=== PATIENT | female | born 1985 | race African-American/Black ===

== ENCOUNTER 2017-01-24 23:28 | Emergency (ER) | payer SELFPAY ==
[2017-01-24] MEDS ORDERED: diPHENhydraMINE IV* 50 MG/ML 1 ml VIAL (BENADRYL) IM ONE (23:33)
[2017-01-24] MEDS ORDERED: Haloperidol INJ IV/IM* 5 MG/ML AMP IM ONE (23:33)
[2017-01-24] MEDS ORDERED: LORazepam INJ* 2 MG/ML 1 ML VIAL IV ONE (23:33)
[2017-01-25 00:43] LABS: Hematocrit 41 % (35-47); Hemoglobin 13.7 g/dl (12.0-16.0); Mean Corpuscular HGB Conc 33 g/dl (31-36); Mean Corpuscular Hemoglobin 31 pg (27-31); Mean Corpuscular Volume 93 fL (80-97); Mean Platelet Volume 9 um3 (7.4-10.4); Red Blood Count 4.43 10^6/ul (4.0-5.4); Red Cell Distribution Width 13 % (10.5-15); White Blood Count 6.9 10^3/ul (3.5-10.8)
[2017-01-25 00:48] LABS: ALT 19 U/L (7-52); AST 35 U/L (13-39); Albumin 4.1 g/dL (3.2-5.2); Alkaline Phosphatase 48 U/L (34-104); Anion Gap 8 mmol/L (2-11); BUN/Creatinine Ratio 10.8 (8-20); Blood Urea Nitrogen 11 mg/dL (6-24); CO2 Carbon Dioxide 25 mmol/L (22-32); Calcium 9.1 mg/dL (8.6-10.3); Chloride 104 mmol/L (101-111); EGFR African American 81.3 (>60); EGFR Non-African American 63.2 (>60); Globulin 2.8 g/dL (2-4); Glucose 100 mg/dL (70-100); Potassium 3.2 mmol/L (3.5-5.0); Sodium 137 mmol/L (133-145); Total Protein 6.9 g/dL (6.4-8.9)
[2017-01-25 01:19] LABS: Acetaminophen < 15 mcg/mL; Alcohol 208 mg/dL (<10); Salicylate < 2.50 mg/dL (<30)
[2017-01-25 01:30] LABS: TSH (Thyroid Stimulating Horm) 2.01 mcIU/mL (0.34-5.60)
[2017-01-25 06:21] VITALS: BP 96/60
[2017-01-25 08:48] LABS: Urine Bacteria 1+ (Absent); Urine Bilirubin Negative (Negative); Urine Glucose Negative (Negative); Urine Nitrite Negative (Negative)
[2017-01-25 08:53] LABS: Benzodiazepine Urine Screen None Detected (None Detect)
--- NOTE | 2017-01-25 17:16 | ED ---
IYoshi Billy, scribed for Dwain Presley MD on 01/25/17 at 1030 . Progress - Progress Note Progress Note: Patient signed out by Dr. Meng at shift change pending MHE. She was evaluated and assessed by Dr. Bartlett, who recommends that she be discharged home with an outpatient treatment. Course/Dx - Diagnoses Provider Diagnoses: Polysubstance abuse Discharge - Discharge Plan Condition: Stable Disposition: HOME Referrals: Non Staff,Doctor [Primary Care Provider] - The documentation as recorded by the [place] Billy accurately reflects the service I personally performed and the decisions made by Fernandez brown Walter, MD.
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
== END 2017-01-25 11:40 | disposition home or self-care (01) ==
LOC: ED 23:28
DX: F19.10 Other psychoactive substance abuse, uncomplicated (principal)
CPT/HCPCS: 36415; 80053; 80307; 80320; 80329; 81003; 81015; 84443; 85025; 87086; 96372; 96375; 99285; G0480; J1200; J1630; J2060

== ENCOUNTER → 2017-02-10 22:12 | Emergency (ER) | payer OTHER ==
[~2017-02-10 22:12] MED LIST: Valproic Acid CAP(*) 250 MG PO ONE
[2017-02-10 22:49] LABS: Hematocrit 46 % (35-47); Hemoglobin 15.2 g/dl (12.0-16.0); Mean Corpuscular HGB Conc 33 g/dl (31-36); Mean Corpuscular Hemoglobin 31 pg (27-31); Mean Corpuscular Volume 92 fL (80-97); Mean Platelet Volume 8 um3 (7.4-10.4); Red Blood Count 4.99 10^6/ul (4.0-5.4); Red Cell Distribution Width 13 % (10.5-15); White Blood Count 6.4 10^3/ul (3.5-10.8)
[2017-02-10 23:04] LABS: Urine Bacteria Absent (Absent); Urine Bilirubin Negative (Negative); Urine Glucose Negative (Negative); Urine Nitrite Negative (Negative)
[2017-02-10 23:10] LABS: Benzodiazepine Urine Screen None Detected (None Detect)
[2017-02-10 23:10] LABS: ALT 15 U/L (7-52); AST 21 U/L (13-39); Albumin 4.6 g/dL (3.2-5.2); Alkaline Phosphatase 57 U/L (34-104); Anion Gap 7 mmol/L (2-11); BUN/Creatinine Ratio 13.6 (8-20); Blood Urea Nitrogen 12 mg/dL (6-24); CO2 Carbon Dioxide 29 mmol/L (22-32); Calcium 9.5 mg/dL (8.6-10.3); Chloride 103 mmol/L (101-111); EGFR African American 96.4 (>60); EGFR Non-African American 74.9 (>60); Glucose 78 mg/dL (70-100); Potassium 3.8 mmol/L (3.5-5.0); Sodium 139 mmol/L (133-145); Total Protein 7.6 g/dL (6.4-8.9)
[2017-02-10 23:15] LABS: Acetaminophen < 15 mcg/mL; Alcohol 181 mg/dL (<10); Salicylate < 2.50 mg/dL (<30); Valproic Acid < 13.0 mcg/mL (50-100)
--- NOTE | 2017-02-10 23:21 | ED ---
Meliton Damian Benjamin, scribed for Sky Phelps MD on 02/10/17 at 2231 . Psychiatric Complaint - HPI Summary HPI Summary: 31yo female BIBA for 941. Pt states that she doesnt feel safe. Pt has hx of bipolar and Sz, and has been off her meds for 2 days. Pt is afraid that she might hurt herself. Pt is on Depakote and Risperadol. Pt also had 1 bottle of beer today. - History Of Current Complaint Chief Complaint: EDMentalHealth Time Seen by Provider: 02/10/17 22:15 Hx Obtained From: Patient ?: No Onset/Duration: Sudden Onset, Still Present Timing: Constant Severity Initially: Mild Severity Currently: Mild Character: Fearful, Anxious Aggravating Factor(s): Nothing Alleviating Factor(s): Nothing Associated Signs And Symptoms: Positive: Negative - Allergies/Home Medications Allergies/Adverse Reactions: Allergies Allergy/AdvReac Type Severity Reaction Status Date / Time Hydrocodone Allergy Hives Verified 02/10/17 22:35 PMH/Surg Hx/FS Hx/Imm Hx Psychiatric History: Reports: Hx Bipolar Disorder, Other Psychiatric Issues/ Disorders - Seizures Denies: Hx Eating Disorder - Family History Known Family History: Positive: Unknown - hx unobtainable due to hostile behavior - Social History Occupation: Unemployed Lives: Alone Alcohol Use: Daily Hx Substance Use: Yes Substance Use Type: Reports: Heroin, Marijuana Smoking Status (MU): Unknown if Ever Smoked Review of Systems Constitutional: Negative Eyes: Negative ENT: Negative Cardiovascular: Negative Respiratory: Negative Gastrointestinal: Negative Genitourinary: Negative Musculoskeletal: Negative Skin: Negative Neurological: Negative Positive: Anxious All Other Systems Reviewed And Are Negative: Yes Physical Exam Triage Information Reviewed: Yes Vital Signs On Initial Exam: Initial Vitals Temp Pulse Resp BP Pulse Ox 98.8 F 75 16 124/71 99 02/10/17 22:33 02/10/17 22:33 02/10/17 22:33 02/10/17 22:33 02/10/17 22:33 Vital Signs Reviewed: Yes Appearance: Positive: No Pain Distress, Well-Nourished. Negative: Well- Appearing - tearful, crying, anxious Skin: Positive: Warm, Skin Color Reflects Adequate Perfusion, Dry Head/Face: Positive: Normal Head/Face Inspection Eyes: Positive: Normal ENT: Positive: Normal ENT inspection Neck: Positive: Supple, Nontender Respiratory/Lung Sounds: Positive: Clear to Auscultation, Breath Sounds Present Cardiovascular: Positive: RRR. Negative: Murmur Abdomen Description: Positive: Nontender, Soft Bowel Sounds: Positive: Present Musculoskeletal: Positive: Strength/ROM Intact Neurological: Positive: Sensory/Motor Intact, Alert, Oriented to Person Place, Time, CN Intact II-III Psychiatric: Positive: Anxious - tearful, crying, anxious Diagnostics - Vital Signs Vital Signs Temp Pulse Resp BP Pulse Ox 02/10/17 22:33 98.8 F 75 16 124/71 99 - Laboratory Lab Results: Lab Results 02/10/17 02/10/17 02/10/17 Range/Units 22:40 22:40 22:45 WBC 6.4 (3.5-10.8) 10^3/ul RBC 4.99 (4.0-5.4) 10^6/ul Hgb 15.2 (12.0-16.0) g/dl Hct 46 (35-47) % MCV 92 (80-97) fL MCH 31 (27-31) pg MCHC 33 (31-36) g/dl RDW 13 (10.5-15) % Plt Count 312 (150-450) 10^3/ul MPV 8 (7.4-10.4) um3 Neut % (Auto) 37.7 L (38-83) % Lymph % (Auto) 51.6 H (25-47) % [place] % (Auto) 6.6 (1-9) % Eos % (Auto) 2.9 (0-6) % Baso % (Auto) 1.2 (0-2) % Absolute Neuts (auto) 2.4 (1.5-7.7) 10^3/ul Absolute Lymphs (auto) 3.3 (1.0-4.8) 10^3/ul Absolute Monos (auto) 0.4 (0-0.8) 10^3/ul Absolute Eos (auto) 0.2 (0-0.6) 10^3/ul Absolute Basos (auto) 0.1 (0-0.2) 10^3/ul Absolute Nucleated RBC 0.01 10^3/ul Nucleated RBC % 0.1 Sodium 139 (133-145) mmol/L Potassium 3.8 (3.5-5.0) mmol/L Chloride 103 (101-111) mmol/L Carbon Dioxide 29 (22-32) mmol/L Anion Gap 7 (2-11) mmol/L BUN 12 (6-24) mg/dL Creatinine 0.88 (0.51-0.95) mg/dL Est GFR ( Amer) 96.4 (>60) Est GFR (Non-Af Amer) 74.9 (>60) BUN/Creatinine Ratio 13.6 (8-20) Glucose 78 (70-100) mg/dL Calcium 9.5 (8.6-10.3) mg/dL Total Bilirubin 0.30 (0.2-1.0) mg/dL AST 21 (13-39) U/L ALT 15 (7-52) U/L Alkaline Phosphatase 57 (34-104) U/L Total Protein 7.6 (6.4-8.9) g/dL Albumin 4.6 (3.2-5.2) g/dL Globulin 3.0 (2-4) g/dL Albumin/Globulin Ratio 1.5 (1-3) TSH Pending Beta HCG, Quant < 0.60 mIU/mL Urine Color Yellow Urine Appearance Clear Urine pH 7.0 (5-9) Ur Specific [place] 1.020 (1.010-1.030) Urine Protein Negative (Negative) Urine Ketones Negative (Negative) Urine Blood Negative (Negative) Urine Nitrate Negative (Negative) Urine Bilirubin Negative (Negative) Urine Urobilinogen Negative (Negative) Ur Leukocyte Esterase 1+ H (Negative) Urine WBC (Auto) 2+(11-20/hpf) H (Absent) Urine RBC (Auto) 2+(6-10/hpf) H (Absent) Ur Squamous Epith Cells Present H (Absent) Urine Bacteria Absent (Absent) Urine Glucose Negative (Negative) Salicylates < 2.50 (<30) mg/dL Urine Opiates Screen (None Detect) Acetaminophen < 15 mcg/mL Ur Barbiturates Screen (None Detect) Valproic Acid < 13.0 L (50-100) mcg/mL Ur Phencyclidine Scrn (None Detect) Ur Amphetamines Screen (None Detect) U Benzodiazepines Scrn (None Detect) Urine Cocaine Screen (None Detect) U Cannabinoids Screen (None Detect) Serum Alcohol 181 H (<10) mg/dL 02/10/17 Range/Units 22:45 WBC (3.5-10.8) 10^3/ul RBC (4.0-5.4) 10^6/ul Hgb (12.0-16.0) g/dl Hct (35-47) % MCV (80-97) fL MCH (27-31) pg MCHC (31-36) g/dl RDW (10.5-15) % Plt Count (150-450) 10^3/ul MPV (7.4-10.4) um3 Neut % (Auto) (38-83) % Lymph % (Auto) (25-47) % [place] % (Auto) (1-9) % Eos % (Auto) (0-6) % Baso % (Auto) (0-2) % Absolute Neuts (auto) (1.5-7.7) 10^3/ul Absolute Lymphs (auto) (1.0-4.8) 10^3/ul Absolute Monos (auto) (0-0.8) 10^3/ul Absolute Eos (auto) (0-0.6) 10^3/ul Absolute Basos (auto) (0-0.2) 10^3/ul Absolute Nucleated RBC 10^3/ul Nucleated RBC % Sodium (133-145) mmol/L Potassium (3.5-5.0) mmol/L Chloride (101-111) mmol/L Carbon Dioxide (22-32) mmol/L Anion Gap (2-11) mmol/L BUN (6-24) mg/dL Creatinine (0.51-0.95) mg/dL Est GFR ( Amer) (>60) Est GFR (Non-Af Amer) (>60) BUN/Creatinine Ratio (8-20) Glucose (70-100) mg/dL Calcium (8.6-10.3) mg/dL Total Bilirubin (0.2-1.0) mg/dL AST (13-39) U/L ALT (7-52) U/L Alkaline Phosphatase (34-104) U/L Total Protein (6.4-8.9) g/dL Albumin (3.2-5.2) g/dL Globulin (2-4) g/dL Albumin/Globulin Ratio (1-3) TSH Beta HCG, Quant mIU/mL Urine Color Urine Appearance Urine pH (5-9) Ur Specific [place] (1.010-1.030) Urine Protein (Negative) Urine Ketones (Negative) Urine Blood (Negative) Urine Nitrate (Negative) Urine Bilirubin (Negative) Urine Urobilinogen (Negative) Ur Leukocyte Esterase (Negative) Urine WBC (Auto) (Absent) Urine RBC (Auto) (Absent) Ur Squamous Epith Cells (Absent) Urine Bacteria (Absent) Urine Glucose (Negative) Salicylates (<30) mg/dL Urine Opiates Screen None detected (None Detect) Acetaminophen mcg/mL Ur Barbiturates Screen None detected (None Detect) Valproic Acid (50-100) mcg/mL Ur Phencyclidine Scrn None detected (None Detect) Ur Amphetamines Screen None detected (None Detect) U Benzodiazepines Scrn None detected (None Detect) Urine Cocaine Screen Presumptive positive H (None Detect) U Cannabinoids Screen Presumptive positive H (None Detect) Serum Alcohol (<10) mg/dL Result Diagrams: 02/10/17 22:40 02/10/17 22:40 Lab Statement: Any lab studies that have been ordered have been reviewed, and results considered in the medical decision making process. Course/Dx - Course Course Of Treatment: NO CRITICAL CARE TIME. MHE PENDING AT SHIFT CHANGE. - Differential Dx/Clinical Impression Provider Diagnosis: Mental health problem, Acute alcohol intoxication Discharge - Discharge Plan Condition: Stable Disposition: OTHER Discharge Disposition Comment: . Referrals: Non Staff,Doctor [Primary Care Provider] - The documentation as recorded by the [place] Benjamin accurately reflects the service I personally performed and the decisions made by me, Sky Phelps MD.
[2017-02-10 23:24] LABS: TSH (Thyroid Stimulating Horm) 2.98 mcIU/mL (0.34-5.60)
[2017-02-11 03:15] VITALS: BP 100/59
--- NOTE | 2017-02-11 06:33 | ED ---
Eliel Damian Salem, scribed for Martín Gutierres on 02/11/17 at 0625 . Progress - Progress Note Progress Note: Pt was signed out from Dr. Phelps. She is medically cleared and waiting mental health evaluation. - Consult/PCP Time Called: 03:00 Course/Dx - Course Course Of Treatment: NO CRITICAL CARE TIME. MHE PENDING AT SHIFT CHANGE. mhe done and will be dc home. - Diagnoses Provider Diagnoses: Mental health problem, Acute alcohol intoxication, Depressed affect Discharge - Discharge Plan Condition: Stable Disposition: OTHER Discharge Disposition Comment: dc home The documentation as recorded by the [place] accurately reflects the service I personally performed and the decisions made by Nenita brown Emmanuel.
== END ==
LOC: EEVIPCON 22:12 → ED 22:12
DX: F10.129 Alcohol abuse with intoxication, unspecified (principal); Z00.8 Encounter for other general examination; F32.9 Major depressive disorder, single episode, unspecified
CPT/HCPCS: 36415; 80053; 80164; 80307; 80320; 80329; 81003; 81015; 84443; 84702; 85025; 87086; 99284; A9270-GY; G0480

== ENCOUNTER → 2017-05-12 00:56 | Emergency (ER) | payer OTHER ==
[~2017-05-12 00:56] MED LIST changes: +Divalproex ER TAB(*) 500 MG ONE; +Divalproex ER TAB(*) 500 MG PO SCH; +Haloperidol INJ IV/IM* 5 MG/ML AMP IM ONE; +LORazepam INJ* 2 MG/ML 1 ML VIAL IM ONE; -Valproic Acid CAP(*) 250 MG PO ONE; +diPHENhydraMINE IV* 50 MG/ML 1 ml VIAL (BENADRYL) IM ONE; +diPHENhydraMINE PO* 50 MG ONE
[2017-05-12 01:55] LABS: Hematocrit 39 % (35-47); Hemoglobin 13.1 g/dl (12.0-16.0); Mean Corpuscular HGB Conc 33 g/dl (31-36); Mean Corpuscular Hemoglobin 31 pg (27-31); Mean Corpuscular Volume 94 fL (80-97); Mean Platelet Volume 8 um3 (7.4-10.4); Red Blood Count 4.21 10^6/ul (4.0-5.4); Red Cell Distribution Width 13 % (10.5-15); White Blood Count 7.2 10^3/ul (3.5-10.8)
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
[2017-05-12 02:10] LABS: ALT 18 U/L (7-52); Acetaminophen < 15 mcg/mL; Albumin 4.3 g/dL (3.2-5.2); Alcohol 256 mg/dL (<10); Alkaline Phosphatase 46 U/L (34-104); BUN/Creatinine Ratio 13.9 (8-20); Blood Urea Nitrogen 16 mg/dL (6-24); CO2 Carbon Dioxide 28 mmol/L (22-32); Chloride 102 mmol/L (101-111); EGFR African American 70.3 (>60); EGFR Non-African American 54.7 (>60); Glucose 117 mg/dL (70-100); Salicylate < 2.50 mg/dL (<30); Sodium 137 mmol/L (133-145); Total Protein 7.3 g/dL (6.4-8.9)
[2017-05-12 02:20] LABS: TSH (Thyroid Stimulating Horm) 3.14 mcIU/mL (0.34-5.60)
[2017-05-12 02:42] LABS: Anion Gap 7 mmol/L (2-11); Potassium 3.6 mmol/L (3.5-5.0)
[2017-05-12 02:43] LABS: AST 29 U/L (13-39)
[2017-05-12 03:55] LABS: Valproic Acid < 13.0 mcg/mL (50-100)
[2017-05-12 11:06] LABS: Benzodiazepine Urine Screen None Detected (None Detect)
[2017-05-12 12:02] LABS: Urine Bacteria Absent (Absent); Urine Bilirubin Negative (Negative); Urine Glucose Negative (Negative); Urine Nitrite Negative (Negative)
[2017-05-12 12:32] VITALS: BP 117/74
== END ==
LOC: ED 00:56
DX: F10.129 Alcohol abuse with intoxication, unspecified (principal)
CPT/HCPCS: 36415; 80053; 80164; 80307; 80320; 80329; 81003; 81015; 84443; 85025; 87086; 96372; 99285; A9270-GY; G0480; J1200; J1630; J2060

== ENCOUNTER 2017-05-24 04:52 | Emergency (ER) | payer OTHER ==
[2017-05-24] MEDS ORDERED: diPHENhydraMINE IV* 50 MG/ML 1 ml VIAL (BENADRYL) IM ONE (05:13)
[2017-05-24] MEDS ORDERED: LORazepam INJ* 2 MG/ML 1 ML VIAL IV PUSH ONE (05:13)
[2017-05-24] MEDS ORDERED: Haloperidol INJ IV/IM* 5 MG/ML AMP IM ONE (05:13)
[2017-05-24 05:45] VITALS: BP 93/62
[2017-05-24 06:07] LABS: Add Diff/Slide Review? Slide Review Added; Comments Flag Yes; Hematocrit 38 % (35-47); Mean Corpuscular HGB Conc 34 g/dl (31-36); Mean Corpuscular Hemoglobin 32 pg (27-31); Mean Corpuscular Volume 93 fL (80-97); Mean Platelet Volume 8 um3 (7.4-10.4); Red Blood Count 4.09 10^6/ul (4.0-5.4); Red Cell Distribution Width 13 % (10.5-15); White Blood Count 7.1 10^3/ul (3.5-10.8)
[2017-05-24 06:18] LABS: ALT 29 U/L (7-52); Acetaminophen < 15 mcg/mL; Albumin 4.5 g/dL (3.2-5.2); Alcohol 202 mg/dL (<10); Alkaline Phosphatase 51 U/L (34-104); BUN/Creatinine Ratio 16.2 (8-20); Blood Urea Nitrogen 16 mg/dL (6-24); CO2 Carbon Dioxide 24 mmol/L (22-32); Calcium 9.4 mg/dL (8.6-10.3); Chloride 104 mmol/L (101-111); EGFR African American 83.6 (>60); Globulin 2.7 g/dL (2-4); Glucose 124 mg/dL (70-100); Salicylate < 2.50 mg/dL (<30); Sodium 136 mmol/L (133-145); Total Protein 7.2 g/dL (6.4-8.9)
[2017-05-24 06:21] LABS: Anion Gap 8 mmol/L (2-11)
[2017-05-24 06:29] LABS: TSH (Thyroid Stimulating Horm) 2.38 mcIU/mL (0.34-5.60)
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
--- NOTE | 2017-05-25 04:33 | ED ---
Lali Damian Rebecca, scribed for Edward Meng MD on 05/24/17 at 0554 . Psychiatric Complaint - HPI Summary HPI Summary: Pt is a 32 y/o F BIB [employer] who presents to ED combative with a spit mask on. Police report the pt had been combative and kicking in their vehicle while [place] [facility] [place] Combativeness necessitated pepper spray while en route. She continues to be angry and curse at individuals in [facility] [place]. PMHx bipolar disorder - states she has not taken her medication in 2 days. Level 5 caveat due to combativeness. - History Of Current Complaint Chief Complaint: EDMentalHealth Hx Obtained From: Other: - Police Hx From Patient Unobtainable Due To: Other - Combativeness Onset/Duration: Still Present Character: Angry - Combative Related History: Positive For: Prior Psychiatric Issues - Bipolar - Allergies/Home Medications Allergies/Adverse Reactions: Allergies Allergy/AdvReac Type Severity Reaction Status Date / Time Hydrocodone Allergy Hives Verified 02/10/17 22:35 PMH/Surg Hx/FS Hx/Imm Hx Respiratory History: Reports: Hx Asthma Neurological History: Reports: Hx Seizures Psychiatric History: Reports: Hx Bipolar Disorder, Other Psychiatric Issues/ Disorders - Seizures Denies: Hx Eating Disorder Infectious Disease History: No Infectious Disease History: Denies: Traveled Outside the [place] in Last 30 Days - Family History Known Family History: Positive: Unknown - Level 5 caveat due to uncooperativity/ combativeness - Social History Alcohol Use: Daily Hx Substance Use: Yes Substance Use Type: Reports: Heroin, Marijuana Substance Use Comment - Amount & Last Used: no drug use Smoking Status (MU): Unknown if Ever Smoked Review of Systems - ROS Summary Review of Systems Summary: Level 5 caveat due to combativeness Positive: Other - Combativeness All Other Systems Reviewed And Are Negative: No Physical Exam - Summary Physical Exam Summary: General: She is crying out, disorganized and paranoid. Eyes: She has injected conjunctiva from pepper spray. Cardiovascular: Skin is well perfused Pulmonary: No respiratory distress, no tachypnea Abdomen: Non-distended Skin: Warm, pink, dry Psych: Anxious affect and paranoid. Neuro: A&Ox3 Triage Information Reviewed: Yes Vital Signs On Initial Exam: Initial Vitals Temp Pulse Resp BP Pulse Ox 96.7 F 89 14 93/62 98 05/24/17 05:15 05/24/17 05:15 05/24/17 05:15 05/24/17 05:15 05/24/17 05:15 Vital Signs Reviewed: Yes Completion Of Physical Exam Limited Due To: Other - Combativeness Diagnostics - Vital Signs Vital Signs Temp Pulse Resp BP Pulse Ox 05/24/17 05:15 96.7 F 89 14 93/62 98 - Laboratory Result Diagrams: 05/24/17 05:25 05/24/17 06:36 Lab Statement: Any lab studies that have been ordered have been reviewed, and results considered in the medical decision making process. Course/Dx - Course Assessment/Plan: Pt is a 32 y/o F BIB [employer] who presents to ED combative with a spit mask on. Police report the pt had been combative and kicking in their vehicle while en route [place] [facility] Combativeness necessitated pepper spray while en route. She continues to be angry and curse at individuals in [facility] [place]. PMHx bipolar disorder - states she has not taken her medication in 2 days. Level 5 caveat due to combativeness. In the ED course, pt was given Haldol, Ativan and Benadryl. She will be signed out, pending dispo, awaiting MHE. - Differential Dx/Clinical Impression Provider Diagnosis: Polysubstance abuse, Psychoses Discharge - Discharge Plan Condition: Stable Disposition: OTHER Discharge Disposition Comment: Pt will be signed out, pending dispo, awaiting MHE. Referrals: Non Staff,Doctor [Primary Care Provider] - The documentation as recorded by the [place]ali hill Rebecca accurately reflects the service I personally performed and the decisions made by me, Edward Meng MD.
== END 2017-05-24 14:31 ==
LOC: ED 04:52
DX: F19.10 Other psychoactive substance abuse, uncomplicated (principal); F29 Unspecified psychosis not due to a substance or known physiological condition; F31.9 Bipolar disorder, unspecified; Z88.5 Allergy status to narcotic agent
CPT/HCPCS: 36415; 80053; 80320; 80329; 84443; 85025; 96372; 96374; 99284; G0480; J1200; J1630; J2060

== ENCOUNTER 2017-08-26 23:55 | Emergency (ER) | payer OTHER ==
[2017-08-27] MEDS ORDERED: ALPRAZolam TAB* 0.5 MG PO ONE (00:22)
[2017-08-27 00:34] LABS: Urine Appearance Clear; Urine Blood Negative (Negative); Urine Color Colorless; Urine Ketones Negative (Negative); Urine Protein Negative (Negative); Urine Specific Gravity 1.002 (1.010-1.030); Urine Urobilinogen Negative (Negative)
[2017-08-27 00:58] LABS: ABS Basophils 0.1 10^3/ul (0-0.2); ABS Eosinophils 0.5 10^3/ul (0-0.6); ABS Lymphocytes 2.9 10^3/ul (1.0-4.8); ABS Monocytes 0.4 10^3/ul (0-0.8); ABS Neutrophils 2.4 10^3/ul (1.5-7.7); ABS Nucleated RBC 0 10^3/ul; Eosinophil % 8.3 % (0-6); Hematocrit 45 % (35-47); Hemoglobin 15.5 g/dl (12.0-16.0); Lymphocyte % 45.9 % (25-47); Mean Corpuscular HGB Conc 34 g/dl (31-36); Mean Corpuscular Hemoglobin 32 pg (27-31); Mean Corpuscular Volume 94 fL (80-97); Mean Platelet Volume 9 um3 (7.4-10.4); Nucleated Red Blood Cells % 0.1; Platelet Count 244 10^3/ul (150-450); Red Blood Count 4.81 10^6/ul (4.0-5.4); Red Cell Distribution Width 13 % (10.5-15); White Blood Count 6.2 10^3/ul (3.5-10.8)
[2017-08-27 01:13] LABS: EGFR Non-African American 86.9 (>60)
[2017-08-27 06:45] VITALS: BP 114/65
--- NOTE | 2017-08-29 00:15 | ED ---
Dee Damian Gabriel, scribed for Bridget Mathias MD on 08/27/17 at 1102 . Progress - Progress Note Progress Note: This patient was signed out from Dr. Gandhi, pending disposition, awaiting MHE. After MHE, Dr. Rae has The patients condition is stable and will be discharged to home with Dx of depression and suicidal ideation . 10:55 Patient states she feels good enough to go home, she isnt feeling suicidal, and she has no questions for the doctor. - Consult/PCP Time Called: 23:55 Course/Dx - Course Course Of Treatment: per Dr. Rae pt can be discharged. - Diagnoses Provider Diagnoses: Suicidal ideation The documentation as recorded by the [place] Gabriel accurately reflects the service I personally performed and the decisions made by , Bridget Mathias MD.
--- NOTE | 2017-09-09 08:46 | ED ---
Brooklynn Damian Emily, scribed for Flory Gnadhi MD on 08/27/17 at 0024 . Psychiatric Complaint - HPI Summary HPI Summary: This patient is a 32 year old F BIBA to [facility] with a chief complaint of SI that occurred earlier today. Patient reports not feeling right. The patient rates the pain 0/10 in severity. Symptoms aggravated by nothing. Symptoms alleviated by nothing. Patient denies CP, vaginal bleeding, vomiting diarrhea, abd pain, SOB, hallucinations, urinary symptoms, headache, blurred vision, and skin complaints. Pt has been diagnosed as bipolar and borderline schizophrenic. Pt reports not having taken her medications in the past two days. - History Of Current Complaint Chief Complaint: EDMentalHealth Time Seen by Provider: 08/26/17 23:59 Hx Obtained From: Patient Onset/Duration: Sudden Onset, Lasting Hours, Still Present Severity Initially: Mild Severity Currently: Mild Aggravating Factor(s): Nothing Alleviating Factor(s): Nothing Related History: Positive For: Prior Psychiatric Issues Has Suicidal: Reports: Thoughts - Allergies/Home Medications Allergies/Adverse Reactions: Allergies Allergy/AdvReac Type Severity Reaction Status Date / Time Hydrocodone Allergy Hives Verified 02/10/17 22:35 PMH/Surg Hx/FS Hx/Imm Hx Previously Healthy: No Respiratory History: Reports: Hx Asthma Neurological History: Reports: Hx Seizures Psychiatric History: Reports: Hx Bipolar Disorder, Hx of Violent Episodes Against Others, Other Psychiatric Issues/Disorders - Seizures Denies: Hx Eating Disorder Infectious Disease History: No Infectious Disease History: Denies: Traveled Outside the [place] in Last 30 Days - Family History Known Family History: Positive: Unknown - Level 5 caveat due to uncooperativity/ combativeness - Social History Lives: Alone Alcohol Use: Daily Hx Substance Use: Yes Substance Use Type: Reports: Heroin, Marijuana Substance Use Comment - Amount & Last Used: no drug use Smoking Status (MU): Unknown if Ever Smoked Review of Systems Negative: Fever Negative: Blurred Vision Negative: Chest Pain Negative: Shortness Of Breath Negative: Abdominal Pain, Vomiting, Diarrhea Positive: no symptoms reported Skin: Negative Negative: Headache Positive: Other - Positive SI. Negative hallucinations All Other Systems Reviewed And Are Negative: No Physical Exam - Summary Physical Exam Summary: Appearance: Alert, conversive, nontoxic appearing Skin: Warm, dry, no mottling, no rashes, no contusions HEENT: EOMI, PERRL, moist mucous membranes Neck: No masses on the neck, supple Respiratory: Clear to auscultation, breath sounds present, no rales, no rhonchi , no wheezes Cardiovascular: RRR, pulses are symmetrical in both lower and upper extremities Abdomen: Soft, non-tender Bowel Sounds: Present Musculoskeletal: No CVA tenderness, no obvious deformity, moving all extremities in a grossly normal manner Neurological: A&Ox3, CN II-XII Intact, moving all extremities symmetrically Psychiatric: Normal affect and mood Triage Information Reviewed: Yes Vital Signs On Initial Exam: Initial Vitals Temp Pulse Resp BP Pulse Ox 98.5 F 89 16 133/93 99 08/27/17 00:00 08/27/17 00:00 08/27/17 00:00 08/27/17 00:00 08/27/17 00:00 Vital Signs Reviewed: Yes Diagnostics - Vital Signs Vital Signs Temp Pulse Resp BP Pulse Ox 08/27/17 00:00 98.5 F 89 16 133/93 99 - Laboratory Lab Results: Lab Results 08/27/17 08/27/17 08/27/17 Range/Units 00:10 00:10 00:30 WBC (3.5-10.8) 10^3/ul RBC (4.0-5.4) 10^6/ul Hgb (12.0-16.0) g/dl Hct (35-47) % MCV (80-97) fL MCH (27-31) pg MCHC (31-36) g/dl RDW (10.5-15) % Plt Count (150-450) 10^3/ul MPV (7.4-10.4) um3 Neut % (Auto) (38-83) % Lymph % (Auto) (25-47) % Rock % (Auto) (1-9) % Eos % (Auto) (0-6) % Baso % (Auto) (0-2) % Absolute Neuts (auto) (1.5-7.7) 10^3/ul Absolute Lymphs (auto) (1.0-4.8) 10^3/ul Absolute Monos (auto) (0-0.8) 10^3/ul Absolute Eos (auto) (0-0.6) 10^3/ul Absolute Basos (auto) (0-0.2) 10^3/ul Absolute Nucleated RBC 10^3/ul Nucleated RBC % Sodium 140 (133-145) mmol/L Potassium 3.8 (3.5-5.0) mmol/L Chloride 105 (101-111) mmol/L Carbon Dioxide 23 (22-32) mmol/L Anion Gap 12 H (2-11) mmol/L BUN 12 (6-24) mg/dL Creatinine 0.77 (0.51-0.95) mg/dL Est GFR ( Amer) 111.7 (>60) Est GFR (Non-Af Amer) 86.9 (>60) BUN/Creatinine Ratio 15.6 (8-20) Glucose 90 (70-100) mg/dL Calcium 9.1 (8.6-10.3) mg/dL Total Bilirubin 0.40 (0.2-1.0) mg/dL AST 22 (13-39) U/L ALT 17 (7-52) U/L Alkaline Phosphatase 58 (34-104) U/L Total Protein 7.8 (6.4-8.9) g/dL Albumin 4.6 (3.2-5.2) g/dL Globulin 3.2 (2-4) g/dL Albumin/Globulin Ratio 1.4 (1-3) Beta HCG, Quant < 0.60 mIU/mL Urine Color Colorless Urine Appearance Clear Urine pH 7.0 (5-9) Ur Specific [place] 1.002 L (1.010-1.030) Urine Protein Negative (Negative) Urine Ketones Negative (Negative) Urine Blood Negative (Negative) Urine Nitrate Negative (Negative) Urine Bilirubin Negative (Negative) Urine Urobilinogen Negative (Negative) Ur Leukocyte Esterase Trace H (Negative) Urine WBC (Auto) Trace(0-5/hpf) (Absent) Urine RBC (Auto) Absent (Absent) Ur Squamous Epith Cells Present H (Absent) Urine Bacteria Absent (Absent) Urine Glucose Negative (Negative) Salicylates < 2.50 (<30) mg/dL Urine Opiates Screen None detected (None Detect) Acetaminophen < 15 mcg/mL Ur Barbiturates Screen None detected (None Detect) Valproic Acid < 13.0 L (50-100) mcg/mL Ur Phencyclidine Scrn None detected (None Detect) Ur Amphetamines Screen None detected (None Detect) U Benzodiazepines Scrn None detected (None Detect) Urine Cocaine Screen Presumptive positive H (None Detect) U Cannabinoids Screen Presumptive positive H (None Detect) Serum Alcohol 208 H (<10) mg/dL 08/27/17 Range/Units 00:30 WBC 6.2 (3.5-10.8) 10^3/ul RBC 4.81 (4.0-5.4) 10^6/ul Hgb 15.5 (12.0-16.0) g/dl Hct 45 (35-47) % MCV 94 (80-97) fL MCH 32 H (27-31) pg MCHC 34 (31-36) g/dl RDW 13 (10.5-15) % Plt Count 244 (150-450) 10^3/ul MPV 9 (7.4-10.4) um3 Neut % (Auto) 38.5 (38-83) % Lymph % (Auto) 45.9 (25-47) % Rock % (Auto) 6.0 (1-9) % Eos % (Auto) 8.3 H (0-6) % Baso % (Auto) 1.3 (0-2) % Absolute Neuts (auto) 2.4 (1.5-7.7) 10^3/ul Absolute Lymphs (auto) 2.9 (1.0-4.8) 10^3/ul Absolute Monos (auto) 0.4 (0-0.8) 10^3/ul Absolute Eos (auto) 0.5 (0-0.6) 10^3/ul Absolute Basos (auto) 0.1 (0-0.2) 10^3/ul Absolute Nucleated RBC 0 10^3/ul Nucleated RBC % 0.1 Sodium (133-145) mmol/L Potassium (3.5-5.0) mmol/L Chloride (101-111) mmol/L Carbon Dioxide (22-32) mmol/L Anion Gap (2-11) mmol/L BUN (6-24) mg/dL Creatinine (0.51-0.95) mg/dL Est GFR ( Amer) (>60) Est GFR (Non-Af Amer) (>60) BUN/Creatinine Ratio (8-20) Glucose (70-100) mg/dL Calcium (8.6-10.3) mg/dL Total Bilirubin (0.2-1.0) mg/dL AST (13-39) U/L ALT (7-52) U/L Alkaline Phosphatase (34-104) U/L Total Protein (6.4-8.9) g/dL Albumin (3.2-5.2) g/dL Globulin (2-4) g/dL Albumin/Globulin Ratio (1-3) Beta HCG, Quant mIU/mL Urine Color Urine Appearance Urine pH (5-9) Ur Specific [place] (1.010-1.030) Urine Protein (Negative) Urine Ketones (Negative) Urine Blood (Negative) Urine Nitrate (Negative) Urine Bilirubin (Negative) Urine Urobilinogen (Negative) Ur Leukocyte Esterase (Negative) Urine WBC (Auto) (Absent) Urine RBC (Auto) (Absent) Ur Squamous Epith Cells (Absent) Urine Bacteria (Absent) Urine Glucose (Negative) Salicylates (<30) mg/dL Urine Opiates Screen (None Detect) Acetaminophen mcg/mL Ur Barbiturates Screen (None Detect) Valproic Acid (50-100) mcg/mL Ur Phencyclidine Scrn (None Detect) Ur Amphetamines Screen (None Detect) U Benzodiazepines Scrn (None Detect) Urine Cocaine Screen (None Detect) U Cannabinoids Screen (None Detect) Serum Alcohol (<10) mg/dL Result Diagrams: 08/27/17 00:30 08/27/17 00:30 Lab Statement: Any lab studies that have been ordered have been reviewed, and results considered in the medical decision making process. Course/Dx - Course Assessment/Plan: This patient is a 32 year old F BIBA to [facility] with a chief complaint of SI that occurred earlier today. Pt has been previously diagnosed as bipolar and borderline schizophrenic. Pt reports not having taken her medications in the past two days. Test results with no significant abnormalities except for urine cocaine screen, urine cannaboids, and serum alcohol. In the ED course the patient was given Xanax. Pt was medically cleared for MHE at 0030. Pt is signed off to Dr. Mathias upon shift change, pending disposition, awaiting MHE. - Differential Dx/Clinical Impression Provider Diagnosis: Suicidal ideation Discharge - Discharge Plan Condition: Stable Disposition: HOME Patient Education Materials: Generalized Anxiety Disorder (ED) Referrals: Non Staff,Doctor [Primary Care Provider] - The documentation as recorded by the Brooklynn hill Emily accurately reflects the service I personally performed and the decisions made by me, Flory Gandhi MD.
== END 2017-08-27 11:29 | disposition home or self-care (01) ==
LOC: ED 23:55
DX: R45.851 Suicidal ideations (principal)
CPT/HCPCS: 36415; 80053; 80164; 80307; 80320; 80329; 81003; 81015; 84702; 85025; 87086; 99284; A9270-GY; G0480

== ENCOUNTER 2021-02-22 01:47 | Inpatient (IN) ==
[2021-02-22] MEDS ORDERED: NS 0.9% 1000 ml BAG 1,000 ML IV ONE ×3 (01:59→07:22)
[2021-02-22 05:38] LABS: ALT 93 U/L (7-52); AST 186 U/L (13-39); Albumin 5.5 g/dL (3.2-5.2); Albumin/Globulin Ratio 1.7 (1-3); Alkaline Phosphatase 100 U/L (35-149); Blood Urea Nitrogen 10 mg/dL (6-24); Chloride 89 mmol/L (101-111); EGFR African American 104.8 (>60); EGFR Non-African American 86.6 (>60); Globulin 3.3 g/dL (2-4); Glucose 142 mg/dL (70-100); HCG Pregnancy < 0.60 mIU/mL; Magnesium 1.6 mg/dL (1.9-2.7); Potassium 5.1 mmol/L (3.5-5.0); Sodium 128 mmol/L (135-145); Total Protein 8.8 g/dL (6.4-8.9)
[2021-02-22 05:39] LABS: Anion Gap 25 mmol/L (2-11)
[2021-02-22 05:40] LABS: CO2 Carbon Dioxide 14 mmol/L (22-32)
[2021-02-22 05:41] LABS: Alcohol, S 104 mg/dL (<10)
[2021-02-22 05:47] LABS: ABS Lymphocytes 0.8 10^3/ul (1.0-4.8); ABS Monocytes 0.3 10^3/ul (0-0.8); ABS Neutrophils 3.3 10^3/ul (1.5-7.7); Eosinophil % 0.1 %; Hematocrit 41 % (35-47); Hemoglobin 13.8 g/dL (12.0-16.0); Lymphocyte % 18.8 %; Mean Corpuscular HGB Conc 34 g/dL (31-36); Mean Corpuscular Hemoglobin 35 pg (27-31); Mean Corpuscular Volume 102 fL (80-97); Mean Platelet Volume 7.9 fL (7.4-10.4); Nucleated Red Blood Cells % 0.3; Platelet Count 145 10^3/uL (150-450); Red Blood Count 3.99 10^6 /uL (3.70-4.87); Red Cell Distribution Width 15 % (10-15); White Blood Count 4.4 10^3/uL (3.5-10.8)
[2021-02-22] MEDS ORDERED: Magnesium Sulfate 2 gm BAG 2 GM/50 ML BAG IVPB ONE (05:47)
[2021-02-22 06:27] LABS: Phosphorus 2.2 mg/dL (2.5-5.0)
[2021-02-22 06:29] LABS: Lipase 792 U/L (11.0-82.0)
[2021-02-22 06:45] LABS: Urine Appearance Cloudy; Urine Bilirubin Negative (Negative); Urine Blood 3+ (Negative); Urine Color Yellow; Urine Glucose 1+(50 mg/dL) (Negative); Urine Ketones 2+ (Negative); Urine Nitrite Negative (Negative); Urine Protein 3+(>=500 mg/dL) (Negative); Urine Specific Gravity 1.025 (1.002-1.030); Urine Urobilinogen Negative (Negative)
[2021-02-22 06:52] LABS: Urine Bacteria Absent (Absent); Urine Red Blood Cell 3+(>10/hpf) (Absent); Urine Squamous Epithelial Cell Present (Absent); Urine White Blood Cell Trace(0-5/hpf) (Absent)
[2021-02-22] MEDS ORDERED: Piperacillin/Tazobac ADVAN 3.375 GM in NS 0.9% 100 ml BAG 100 ML IV ONE (07:32)
[2021-02-22] MEDS ORDERED: Lactated Ringers 1000 ml BAG 1,000 ML IV ONE (07:33)
[2021-02-22] MEDS ORDERED: Iohexol 300 (CONTRAST) 10 ML SDV IV ONE (09:29)
[2021-02-22] MEDS ORDERED: fentaNYL 100 mcg/2 ml 50 MCG/ML VIAL IV SLOW PU ONE (09:37)
[2021-02-22] MEDS ORDERED: Diazepam INJ CARPUJECT 5 MG/ML IV ONE (09:37)
[2021-02-22] MEDS ORDERED: Ondansetron 4 mg VIAL 2 MG/ML 2 ml VIAL IV PRN (14:18)
[2021-02-22] MEDS ORDERED: Lactated Ringers 1000 ml BAG 1,000 ML IV SCH (15:00)
[2021-02-22 15:08] LABS: Calcium 7.4 mg/dL (8.6-10.3); Chloride 95 mmol/L (101-111); Sodium 124 mmol/L (135-145)
[2021-02-22 15:12] LABS: CO2 Carbon Dioxide 9 mmol/L (22-32)
[2021-02-22 15:14] LABS: Blood Urea Nitrogen 6 mg/dL (6-24); EGFR African American 121.2 (>60); EGFR Non-African American 100.2 (>60); Glucose 142 mg/dL (70-100)
[2021-02-22] MEDS ORDERED: Lorazepam PYXIS KEY PRN (15:18)
[2021-02-22 15:23] LABS: Anion Gap 20 mmol/L (2-11)
[2021-02-22] MEDS ORDERED: NS 0.9% 500 ml BAG 500 ML IV ONE (15:26)
[2021-02-22] MEDS ORDERED: Sodium Bicarbonate 8.4% SYR 50 ml SYRINGE IV ONE (15:29)
[2021-02-22] MEDS ORDERED: NS 0.9% 500 ml BAG 500 ML IV SCH (16:00)
[2021-02-22] MEDS ORDERED: Lactated Ringers 500 ml BAG 500 ML IV SCH (16:00)
[2021-02-22] MEDS ORDERED: Thiamine 100 MG/ML 2 ml VIAL (200 mg) IV ONE (16:46)
[2021-02-22 17:45] LABS: Hepatitis B Surface Antigen Nonreactive (Nonreactive)
[2021-02-22] MEDS: HYDROmorphone 0.5 MG/0.5 ML SYRINGE IV PRN ×2 (17:45→21:25)
[2021-02-22 17:50] LABS: Hepatitis A Ab IgM Negative (Negative); Hepatitis B Core IgM Nonreactive (Nonreactive)
[2021-02-22] MEDS ORDERED: Thiamine IV 100 MG in NS 0.9% 50 ML IV ONE (18:00)
[2021-02-22 18:02] LABS: Hepatitis C Antibody Negative (Negative)
[2021-02-22] MEDS: Lactated Ringers 1000 ml BAG 1,000 ML IV SCH (20:26)
[2021-02-22 22:04] LABS: Calcium 8.3 mg/dL (8.6-10.3); EGFR African American 130.1 (>60); EGFR Non-African American 107.5 (>60); Potassium 4.5 mmol/L (3.5-5.0)
[2021-02-23] MEDS: Lactated Ringers 1000 ml BAG 1,000 ML IV SCH (00:17)
[2021-02-23] MEDS: HYDROmorphone 0.5 MG/0.5 ML SYRINGE IV PRN ×7 (00:38→22:22)
[2021-02-23 05:51] LABS: ABS Eosinophils 0.1 10^3/ul (0-0.6); ABS Lymphocytes 0.9 10^3/ul (1.0-4.8); ABS Monocytes 0.2 10^3/ul (0-0.8); ABS Neutrophils 1.8 10^3/ul (1.5-7.7); Eosinophil % 1.8 %; Hematocrit 28 % (35-47); Hemoglobin 9.8 g/dL (12.0-16.0); Lymphocyte % 30.4 %; Mean Corpuscular HGB Conc 35 g/dL (31-36); Mean Corpuscular Hemoglobin 35 pg (27-31); Mean Corpuscular Volume 99 fL (80-97); Nucleated Red Blood Cells % 0.1; Red Blood Count 2.82 10^6 /uL (3.70-4.87); Red Cell Distribution Width 14 % (10-15); White Blood Count 2.9 10^3/uL (3.5-10.8)
[2021-02-23 06:13] LABS: ALT 49 U/L (7-52); AST 90 U/L (13-39); Albumin 3.9 g/dL (3.2-5.2); Albumin/Globulin Ratio 1.8 (1-3); Alkaline Phosphatase 63 U/L (35-149); Anion Gap 13 mmol/L (2-11); Blood Urea Nitrogen 5 mg/dL (6-24); CO2 Carbon Dioxide 21 mmol/L (22-32); Calcium 8.3 mg/dL (8.6-10.3); Chloride 95 mmol/L (101-111); EGFR African American 166.1 (>60); EGFR Non-African American 137.2 (>60); Globulin 2.2 g/dL (2-4); Glucose 95 mg/dL (70-100); Magnesium 1.6 mg/dL (1.9-2.7); Potassium 3.9 mmol/L (3.5-5.0); Sodium 129 mmol/L (135-145); Total Protein 6.1 g/dL (6.4-8.9)
[2021-02-23 06:14] LABS: Platelet Count 78 10^3/uL (150-450)
[2021-02-23 06:20] LABS: Phosphorus < 1.0 mg/dL (2.5-5.0)
[2021-02-23] MEDS ORDERED: Magnesium Sulf 4 GM/100 ML IV 4,000 MG/100 ML BAG IVPB ONE (06:30)
[2021-02-23] MEDS ORDERED: Sodium Phosphate IV 30 MMOLE in NS 0.9% 250 ml 250 ML IVPB ONE (06:56)
[2021-02-23] MEDS ORDERED: Potassium Phosphate IV 15 MMOLE in NS 0.9% 250 ml 250 ML IVPB ONE (14:08)
[2021-02-23 14:34] LABS: Calcium 7.9 mg/dL (8.6-10.3); EGFR African American 169.9 (>60); EGFR Non-African American 140.4 (>60); Phosphorus 2.7 mg/dL (2.5-5.0); Potassium 3.6 mmol/L (3.5-5.0)
[2021-02-23] MEDS: Potassium & Sodium Phos 250 mg = 1 PACKET PO SCH ×2 (16:05→19:34)
[2021-02-23] MEDS: LORazepam 2 mg VIAL 1 ml IV PUSH PRN (21:20)
[2021-02-24] MEDS: HYDROmorphone 0.5 MG/0.5 ML SYRINGE IV PRN ×2 (01:54→08:49)
[2021-02-24] MEDS: LORazepam 2 mg VIAL 1 ml IV PUSH PRN (01:54)
[2021-02-24] MEDS: Potassium & Sodium Phos 250 mg = 1 PACKET PO SCH ×3 (08:49→20:47)
[2021-02-24] MEDS: oxyCODONE/Acetamin 5/325 mg TAB PO PRN ×3 (13:52→23:06)
[2021-02-24 18:07] LABS: Calcium 9.1 mg/dL (8.6-10.3); EGFR African American 162.4 (>60); EGFR Non-African American 134.2 (>60); Magnesium 1.7 mg/dL (1.9-2.7); Phosphorus 2.6 mg/dL (2.5-5.0)
[2021-02-24] MEDS ORDERED: Magnesium Sulfate IV 3 GM in NS 0.9% 100 ml BAG 100 ML IVPB ONE (18:30)
[2021-02-24 18:37] LABS: Hematocrit 28 % (35-47); Hemoglobin 9.6 g/dL (12.0-16.0); Mean Corpuscular HGB Conc 34 g/dL (31-36); Mean Corpuscular Hemoglobin 34 pg (27-31); Mean Corpuscular Volume 100 fL (80-97); Mean Platelet Volume 8.8 fL (7.4-10.4); Platelet Count 90 10^3/uL (150-450); Red Blood Count 2.81 10^6 /uL (3.70-4.87); Red Cell Distribution Width 14 % (10-15); White Blood Count 2.6 10^3/uL (3.5-10.8)
[2021-02-25] MEDS: oxyCODONE/Acetamin 5/325 mg TAB PO PRN ×2 (05:33→09:59)
[2021-02-25 05:39] LABS: Hematocrit 27 % (35-47); Hemoglobin 9.2 g/dL (12.0-16.0); Mean Corpuscular HGB Conc 34 g/dL (31-36); Mean Corpuscular Hemoglobin 34 pg (27-31); Mean Corpuscular Volume 100 fL (80-97); Mean Platelet Volume 8.3 fL (7.4-10.4); Platelet Count 103 10^3/uL (150-450); Red Cell Distribution Width 14 % (10-15); White Blood Count 2.4 10^3/uL (3.5-10.8)
[2021-02-25 05:54] LABS: Calcium 8.9 mg/dL (8.6-10.3); EGFR African American 178.1 (>60); EGFR Non-African American 147.2 (>60); Phosphorus 1.9 mg/dL (2.5-5.0); Potassium 3.7 mmol/L (3.5-5.0)
[2021-02-25] MEDS: Potassium Acid Phos 500 mg TAB PO SCH ×2 (09:59→13:50)
[2021-02-25] MEDS: Potassium & Sodium Phos 250 mg = 1 PACKET PO SCH ×3 (10:00→20:55)
[2021-02-25] MEDS ORDERED: Magnesium Hydroxide LIQ 30 ML UDC PO PRN (10:43)
[2021-02-25] MEDS ORDERED: Senna TAB 8.6 mg TAB PO PRN (10:44)
[2021-02-25] MEDS ORDERED: Polyethylene Glycol 3350 17 GM PACKET PO PRN (10:44)
[2021-02-26 00:11] VITALS: BP 155/97
== END 2021-02-26 02:21 | disposition left against medical advice (07) | DRG 282 ==
LOC: ED 01:47 → MED 17:00
PROVIDERS: ADMIT Internal Medicine; ATTEND Student in an Organized Health Care Education/Training Program

== ENCOUNTER 2021-02-26 20:50 | Inpatient (IN) ==
[2021-02-26 23:29] LABS: ABS Lymphocytes 1.1 10^3/ul (1.0-4.8); ABS Monocytes 0.5 10^3/ul (0-0.8); ABS Neutrophils 1.5 10^3/ul (1.5-7.7); Eosinophil % 0.6 %; Hematocrit 30 % (35-47); Hemoglobin 10.3 g/dL (12.0-16.0); Lymphocyte % 35.9 %; Mean Corpuscular HGB Conc 35 g/dL (31-36); Mean Corpuscular Hemoglobin 34 pg (27-31); Mean Corpuscular Volume 100 fL (80-97); Mean Platelet Volume 7.5 fL (7.4-10.4); Nucleated Red Blood Cells % 0.2; Platelet Count 236 10^3/uL (150-450); Red Blood Count 2.98 10^6 /uL (3.70-4.87); Red Cell Distribution Width 14 % (10-15); White Blood Count 3.1 10^3/uL (3.5-10.8)
[2021-02-26 23:51] LABS: ALT 54 U/L (7-52); AST 95 U/L (13-39); Albumin 4.5 g/dL (3.2-5.2); Albumin/Globulin Ratio 1.6 (1-3); Alkaline Phosphatase 79 U/L (35-149); Anion Gap 11 mmol/L (2-11); Blood Urea Nitrogen 7 mg/dL (6-24); CO2 Carbon Dioxide 33 mmol/L (22-32); Calcium 10.3 mg/dL (8.6-10.3); Chloride 93 mmol/L (101-111); EGFR African American 169.9 (>60); EGFR Non-African American 140.4 (>60); Globulin 2.9 g/dL (2-4); Glucose 171 mg/dL (70-100); Potassium 3.5 mmol/L (3.5-5.0); Sodium 137 mmol/L (135-145); Total Protein 7.4 g/dL (6.4-8.9)
[2021-02-26 23:57] LABS: Acetaminophen < 15 mcg/mL; Alcohol, S 12 mg/dL (<10); Salicylate < 2.50 mg/dL (<30)
[2021-02-27 00:13] LABS: TSH Ultra Thyroid Stim Horm 2.91 mcIU/mL (0.34-5.60)
[2021-02-27] MEDS ORDERED: Nicotine GUM 2MG FRUIT FLAVOR PO PRN (00:49)
[2021-02-27 01:36] LABS: Urine Appearance Cloudy; Urine Bilirubin Negative (Negative); Urine Blood 1+ (Negative); Urine Color Amber; Urine Glucose 2+(150 mg/dL) (Negative); Urine Ketones Trace (Negative); Urine Nitrite Negative (Negative); Urine Protein 2+(100 mg/dL) (Negative); Urine Specific Gravity 1.019 (1.002-1.030); Urine Urobilinogen Positive (Negative)
[2021-02-27 01:39] LABS: Urine Bacteria Absent (Absent); Urine Red Blood Cell 3+(>10/hpf) (Absent); Urine Squamous Epithelial Cell Present (Absent); Urine White Blood Cell 3+(>20/hpf) (Absent)
[2021-02-27 02:05] LABS: Urine Benzodiazepine Screen Presumptive Positive (None Detect); Urine Cannabinoids Screen Presumptive Positive (None Detect); Urine Opiates Screen None Detected (None Detect)
[2021-02-27] MEDS ORDERED: Al Hydrox/Mg Hydrox/Simet LIQ 30 ML UDC PO PRN (06:31)
[2021-02-27] MEDS: Vitamin THERAPEUTIC TAB PO SCH (08:38)
[2021-02-28] MEDS: Vitamin THERAPEUTIC TAB PO SCH (08:40)
[2021-02-28] MEDS: Nicotine GUM 2MG FRUIT FLAVOR PO PRN ×2 (08:46→15:53)
[2021-02-28 10:22] LABS: HDL Cholesterol 77.5 mg/dL
[2021-02-28] MEDS: Lactated Ringers 1000 ml BAG 1,000 ML IV SCH (17:38)
[2021-02-28] MEDS: HYDROmorphone 0.5 MG/0.5 ML SYRINGE IV SLOW PU PRN ×2 (17:42→21:17)
[2021-03-01] MEDS: HYDROmorphone 0.5 MG/0.5 ML SYRINGE IV SLOW PU PRN ×4 (03:05→20:39)
[2021-03-01] MEDS: Lactated Ringers 1000 ml BAG 1,000 ML IV SCH (03:05)
[2021-03-01 06:27] LABS: ABS Lymphocytes 1.2 10^3/ul (1.0-4.8); ABS Monocytes 1.2 10^3/ul (0-0.8); ABS Neutrophils 2.4 10^3/ul (1.5-7.7); Eosinophil % 0.5 %; Hematocrit 26 % (35-47); Lymphocyte % 24.6 %; Mean Corpuscular HGB Conc 34 g/dL (31-36); Mean Corpuscular Hemoglobin 34 pg (27-31); Mean Corpuscular Volume 101 fL (80-97); Mean Platelet Volume 7.9 fL (7.4-10.4); Nucleated Red Blood Cells % 0.1; Platelet Count 305 10^3/uL (150-450); Red Blood Count 2.62 10^6 /uL (3.70-4.87); Red Cell Distribution Width 15 % (10-15); White Blood Count 4.9 10^3/uL (3.5-10.8)
[2021-03-01 06:49] LABS: Albumin 3.7 g/dL (3.2-5.2); Albumin/Globulin Ratio 1.4 (1-3); Calcium 9.4 mg/dL (8.6-10.3); EGFR African American 207.8 (>60); EGFR Non-African American 171.7 (>60); Globulin 2.6 g/dL (2-4); Magnesium 1.3 mg/dL (1.9-2.7); Phosphorus 4.2 mg/dL (2.5-5.0); Potassium 3.9 mmol/L (3.5-5.0); Total Bilirubin 0.5 mg/dL (0.2-1.0); Total Protein 6.3 g/dL (6.4-8.9)
[2021-03-01] MEDS ORDERED: Magnesium Sulfate 2 gm BAG 2 GM/50 ML BAG IVPB ONE (07:04)
[2021-03-01] MEDS: Vitamin THERAPEUTIC TAB PO SCH (07:32)
[2021-03-01] MEDS ORDERED: Lactated Ringers 1000 ml BAG 1,000 ML IV SCH ×2 (12:00→14:31)
[2021-03-02] MEDS: HYDROmorphone 0.5 MG/0.5 ML SYRINGE IV SLOW PU PRN ×5 (00:41→20:04)
[2021-03-02 06:37] LABS: ABS Lymphocytes 1.5 10^3/ul (1.0-4.8); ABS Monocytes 1.1 10^3/ul (0-0.8); ABS Neutrophils 1.8 10^3/ul (1.5-7.7); Eosinophil % 0.9 %; Hematocrit 26 % (35-47); Hemoglobin 8.9 g/dL (12.0-16.0); Lymphocyte % 33.5 %; Mean Corpuscular HGB Conc 35 g/dL (31-36); Mean Corpuscular Hemoglobin 35 pg (27-31); Mean Corpuscular Volume 101 fL (80-97); Mean Platelet Volume 7.9 fL (7.4-10.4); Nucleated Red Blood Cells % 0.1; Platelet Count 365 10^3/uL (150-450); Red Blood Count 2.57 10^6 /uL (3.70-4.87); Red Cell Distribution Width 14 % (10-15); White Blood Count 4.5 10^3/uL (3.5-10.8)
[2021-03-02 06:54] LABS: Albumin 3.5 g/dL (3.2-5.2); Albumin/Globulin Ratio 1.3 (1-3); Calcium 9.4 mg/dL (8.6-10.3); EGFR African American 178.1 (>60); EGFR Non-African American 147.2 (>60); Globulin 2.6 g/dL (2-4); Total Bilirubin 0.4 mg/dL (0.2-1.0); Total Protein 6.1 g/dL (6.4-8.9)
[2021-03-02] MEDS: Vitamin THERAPEUTIC TAB PO SCH (07:31)
[2021-03-02] MEDS: NS 0.9% 1000 ml BAG 1,000 ML IV SCH (15:15)
[2021-03-02] MEDS: Nicotine GUM 2MG FRUIT FLAVOR PO PRN (21:05)
[2021-03-03] MEDS: HYDROmorphone 0.5 MG/0.5 ML SYRINGE IV SLOW PU PRN ×2 (00:09→09:25)
[2021-03-03] MEDS: Vitamin THERAPEUTIC TAB PO SCH (09:25)
[2021-03-03] MEDS ORDERED: HYDROmorphone 0.5 MG/0.5 ML SYRINGE IV SLOW PU PRN (09:47)
[2021-03-03 11:01] LABS: Albumin 3.6 g/dL (3.2-5.2); Albumin/Globulin Ratio 1.4 (1-3); Calcium 9.4 mg/dL (8.6-10.3); EGFR African American 158.8 (>60); EGFR Non-African American 131.3 (>60); Globulin 2.6 g/dL (2-4); Potassium 4.2 mmol/L (3.5-5.0); Total Bilirubin 0.3 mg/dL (0.2-1.0); Total Protein 6.2 g/dL (6.4-8.9)
[2021-03-03] MEDS: NS 0.9% 1000 ml BAG 1,000 ML IV SCH (16:52)
[2021-03-04] MEDS: Vitamin THERAPEUTIC TAB PO SCH (08:32)
[2021-03-04 10:42] LABS: Albumin 3.7 g/dL (3.2-5.2); Albumin/Globulin Ratio 1.3 (1-3); Calcium 9.1 mg/dL (8.6-10.3); EGFR African American 143.1 (>60); EGFR Non-African American 118.3 (>60); Globulin 2.8 g/dL (2-4); Total Bilirubin 0.3 mg/dL (0.2-1.0); Total Protein 6.5 g/dL (6.4-8.9)
[2021-03-04 12:56] VITALS: BP 151/88
== END 2021-03-04 12:40 | disposition home or self-care (01) | DRG 753 ==
LOC: ED 20:50 → BSU 02-27 04:25 → MED 02-28 12:55
PROVIDERS: ADMIT Psychiatry & Neurology Psychiatry; ATTEND Student in an Organized Health Care Education/Training Program

== ENCOUNTER 2021-03-19 09:44 | Observation (INO) ==
[2021-03-19] MEDS ORDERED: Thiamine 100 MG/ML 2 ml VIAL 100 MG, Folic Acid IV 1 MG, Multiple Vitamin IV ADULT 10 M... IV ONE (09:59)
[2021-03-19] MEDS ORDERED: LORazepam 2 mg VIAL 1 ml IV PUSH ONE (10:08)
[2021-03-19] MEDS ORDERED: Lorazepam PYXIS KEY PRN (10:08)
[2021-03-19 10:30] LABS: ABS Lymphocytes 1.3 10^3/ul (1.0-4.8); ABS Monocytes 0.3 10^3/ul (0-0.8); ABS Neutrophils 1.9 10^3/ul (1.5-7.7); Eosinophil % 0.7 %; Hematocrit 35 % (35-47); Hemoglobin 11.8 g/dL (12.0-16.0); Mean Corpuscular HGB Conc 34 g/dL (31-36); Mean Corpuscular Hemoglobin 34 pg (27-31); Mean Corpuscular Volume 101 fL (80-97); Mean Platelet Volume 7.8 fL (7.4-10.4); Nucleated Red Blood Cells % 0.3; Platelet Count 150 10^3/uL (150-450); Red Blood Count 3.49 10^6 /uL (3.70-4.87); Red Cell Distribution Width 14 % (10-15); White Blood Count 3.5 10^3/uL (3.5-10.8)
[2021-03-19 10:45] LABS: ALT 64 U/L (7-52); Albumin 4.7 g/dL (3.2-5.2); Albumin/Globulin Ratio 1.4 (1-3); Alkaline Phosphatase 85 U/L (35-149); Blood Urea Nitrogen 6 mg/dL (6-24); CO2 Carbon Dioxide 26 mmol/L (22-32); Calcium 9.3 mg/dL (8.6-10.3); Chloride 92 mmol/L (101-111); Creatine Kinase 51 U/L (10-223); EGFR African American 137.7 (>60); EGFR Non-African American 113.8 (>60); Globulin 3.3 g/dL (2-4); Glucose 157 mg/dL (70-100); Lipase 181 U/L (11.0-82.0); Magnesium 1.2 mg/dL (1.9-2.7); Sodium 131 mmol/L (135-145)
[2021-03-19] MEDS ORDERED: Magnesium Sulfate 2 gm BAG 2 GM/50 ML BAG IVPB ONE ×2 (10:48→11:42)
[2021-03-19 10:52] LABS: HCG Pregnancy < 0.60 mIU/mL
[2021-03-19] MEDS ORDERED: NORMOSOL-R pH 7.4 1000 mL BAG 1,000 ML IV SCH ×2 (11:00→12:00)
[2021-03-19 11:28] LABS: Valproic Acid < 13.0 mcg/mL (50-100)
[2021-03-19] MEDS ORDERED: Magnesium Sulf 4 GM/100 ML IV 4,000 MG/100 ML BAG IVPB ONE (11:38)
[2021-03-19 11:46] LABS: Alcohol, S < 10 mg/dL (<10)
[2021-03-19] MEDS ORDERED: Ondansetron 4 mg VIAL 2 MG/ML 2 ml VIAL IV PRN (11:56)
[2021-03-19 12:07] LABS: Anion Gap 13 mmol/L (2-11)
[2021-03-19 12:41] LABS: Potassium Redraw 4.2 mmol/L (3.5-5.0)
[2021-03-19 12:47] LABS: AST Redraw 130 U/L (13-39)
[2021-03-19 14:37] LABS: Folate 11.26 ng/mL (5.90-24.80)
[2021-03-19 14:39] LABS: Vitamin B12 840 pg/mL (180-914)
[2021-03-19] MEDS: Enoxaparin 40 MG/0.4 ML SYR SUBCUT SCH (15:48)
[2021-03-19] MEDS: Lactated Ringers 1000 ml BAG 1,000 ML IV SCH (17:49)
[2021-03-19] MEDS: prednisoLONE 1% OPHTH.SUSP 5 ML OPHTH.SUSP LEFT EYE SCH (20:25)
[2021-03-19] MEDS: Erythromycin OPTH OINT APPLIC OINT OPHTHALMIC SCH (20:26)
[2021-03-19 20:37] LABS: HIV 4th Generation Nonreactive (Nonreactive)
[2021-03-20] MEDS: Lactated Ringers 1000 ml BAG 1,000 ML IV SCH ×3 (02:31→21:04)
[2021-03-20 06:43] LABS: Hematocrit 32 % (35-47); Hemoglobin 10.7 g/dL (12.0-16.0); Mean Corpuscular HGB Conc 34 g/dL (31-36); Mean Corpuscular Hemoglobin 34 pg (27-31); Mean Corpuscular Volume 101 fL (80-97); Platelet Count 106 10^3/uL (150-450); Red Blood Count 3.11 10^6 /uL (3.70-4.87); Red Cell Distribution Width 14 % (10-15)
[2021-03-20 06:47] LABS: Albumin 3.6 g/dL (3.2-5.2); Albumin/Globulin Ratio 1.5 (1-3); Calcium 8.1 mg/dL (8.6-10.3); EGFR African American 187.1 (>60); EGFR Non-African American 154.6 (>60); Globulin 2.4 g/dL (2-4); Magnesium 1.7 mg/dL (1.9-2.7); Phosphorus 2.9 mg/dL (2.5-5.0); Potassium 3.6 mmol/L (3.5-5.0); Total Bilirubin 0.8 mg/dL (0.2-1.0)
[2021-03-20] MEDS: Erythromycin OPTH OINT APPLIC OINT OPHTHALMIC SCH ×3 (08:14→19:58)
[2021-03-20] MEDS: prednisoLONE 1% OPHTH.SUSP 5 ML OPHTH.SUSP LEFT EYE SCH ×2 (08:14→19:58)
[2021-03-20] MEDS: Multivitamins/Minerals TAB PO SCH (08:14)
[2021-03-20 11:04] LABS: ABS Eosinophils 0.1 10^3/ul (0-0.6); ABS Lymphocytes 1.2 10^3/ul (1.0-4.8); ABS Monocytes 0.2 10^3/ul (0-0.8); ABS Neutrophils 0.7 10^3/ul (1.5-7.7); Eosinophil % 4.3 %; Lymphocyte % 54.8 %; Nucleated Red Blood Cells % 0.3; White Blood Count 2.2 10^3/uL (3.5-10.8)
[2021-03-20] MEDS ORDERED: Magnesium Sulfate IV 3 GM in NS 0.9% 100 ml BAG 100 ML IVPB ONE (12:00)
[2021-03-20] MEDS: Enoxaparin 40 MG/0.4 ML SYR SUBCUT SCH (13:11)
[2021-03-21 07:15] LABS: ABS Eosinophils 0.2 10^3/ul (0-0.6); ABS Lymphocytes 1.4 10^3/ul (1.0-4.8); ABS Monocytes 0.2 10^3/ul (0-0.8); ABS Neutrophils 2.1 10^3/ul (1.5-7.7); Eosinophil % 4.6 %; Hematocrit 31 % (35-47); Hemoglobin 10.5 g/dL (12.0-16.0); Lymphocyte % 35.8 %; Mean Corpuscular HGB Conc 34 g/dL (31-36); Mean Corpuscular Hemoglobin 35 pg (27-31); Mean Corpuscular Volume 101 fL (80-97); Mean Platelet Volume 8.5 fL (7.4-10.4); Platelet Count 89 10^3/uL (150-450); Red Blood Count 3.04 10^6 /uL (3.70-4.87); Red Cell Distribution Width 14 % (10-15); White Blood Count 3.8 10^3/uL (3.5-10.8)
[2021-03-21 07:22] LABS: Albumin 3.7 g/dL (3.2-5.2); Albumin/Globulin Ratio 1.5 (1-3); Calcium 8.7 mg/dL (8.6-10.3); EGFR African American 149.1 (>60); EGFR Non-African American 123.2 (>60); Globulin 2.4 g/dL (2-4); Magnesium 1.4 mg/dL (1.9-2.7); Total Bilirubin 0.6 mg/dL (0.2-1.0); Total Protein 6.1 g/dL (6.4-8.9)
[2021-03-21] MEDS ORDERED: Magnesium Sulf 4 GM/100 ML IV 4,000 MG/100 ML BAG IVPB ONE (08:02)
[2021-03-21 08:11] VITALS: BP 142/86
[2021-03-21] MEDS: prednisoLONE 1% OPHTH.SUSP 5 ML OPHTH.SUSP LEFT EYE SCH (08:41)
[2021-03-21] MEDS: Erythromycin OPTH OINT APPLIC OINT OPHTHALMIC SCH (08:41)
[2021-03-21] MEDS: Multivitamins/Minerals TAB PO SCH (08:41)
== END 2021-03-21 15:15 | disposition home or self-care (01) ==
LOC: ED 09:44 → MED 09:44
PROVIDERS: ADMIT Pediatrics; ATTEND Hospitalist